=== PATIENT | female | born 1965 | race Caucasian/White ===

== ENCOUNTER → 2016-08-01 | Outpatient (CLI) | payer OTHER ==
[~2016-08-01] MED LIST: EPIPEN ADU0.3 MG/0.3 IM; PERCOCET 5/31 TABLET PO; SUDAFED 12-HOU120 MG PO; ZYRTEC10 M2 PO
== END | disposition home or self-care (01) ==
LOC: CDC 10:34
DX: I49.8 Other specified cardiac arrhythmias (principal); K42.9 Umbilical hernia without obstruction or gangrene
CPT/HCPCS: 93000

== ENCOUNTER 2016-08-11 06:38 | Day surgery (SDC) | payer OTHER ==
[~2016-08-11] VITALS: Ht 167.6 cm; Wt 108.1 kg
[~2016-08-11 06:38] MED LIST changes: -PERCOCET 5/31 TABLET PO
[2016-08-11 06:58] VITALS: BP 170/96
[2016-08-11] MEDS ORDERED: PERCOCET 5/31 TABLET PO (09:49)
[2016-08-11 10:51] LABS: INTERNAL CONTROL VALID? YES
[2016-08-11 11:30] VITALS: BP 136/72
[2016-08-11 12:30] VITALS: BP 123/66
[2016-08-11 14:35] VITALS: BP 116/65
== END 2016-08-11 14:55 | disposition home or self-care (01) ==
LOC: SDC 06:38
PROVIDERS: Surgery
PROC: 0WUF4JZ Supplement Abdominal Wall with Synthetic Substitute, Percutaneous Endoscopic Approach (ICD-10-PCS; principal; 2016-08-11)
DX: K42.0 Umbilical hernia with obstruction, without gangrene (principal); Z88.7 Allergy status to serum and vaccine; Z88.6 Allergy status to analgesic agent; Z88.0 Allergy status to penicillin; Z88.2 Allergy status to sulfonamides; Z82.49 Family history of ischemic heart disease and other diseases of the circulatory system; Z80.3 Family history of malignant neoplasm of breast; Z82.5 Family history of asthma and other chronic lower respiratory diseases; Z82.3 Family history of stroke; Z80.49 Family history of malignant neoplasm of other genital organs; Z83.3 Family history of diabetes mellitus
CPT/HCPCS: 84703; C1781; J0131; J0330; J0690; J1100; J1170; J1885; J2250; J2405; J2710